=== PATIENT | female | born 1965 | race Caucasian/White ===

== ENCOUNTER 2016-10-28 18:41 | Observation (INO) | payer MEDICARE ==
[~2016-10-28] VITALS: Ht 157.5 cm; Wt 113.0 kg
[~2016-10-28 18:41] MED LIST: AMBIEN5 MG PO; APRESOLINE25 MG PO; ASPIRIN325 MG PO; BENADRYL50 MG PO; CATAPRES0.1 MG PO; CATAPRES0.2 MG PO; CLARITIN 10 MG10 MG PO; COREG12.5 MG PO; COUMADIN3 MG PO; COUMADIN5 MG PO; COUMADIN7.5 MG PO; DICLOFENAC SODI50 MG PO; EFFEXOR XR37.5 MG PO; GENTAMICIN80 MG/2 ML IV; HUMALOG 30100 UNITS/; HUMALOG 30100 UNITS/ SC; HYDRALAZINE HC100 MG PO; HYDRALAZINE HCL25 MG PO; HYDROCODONE-APA1 TAB PO; KEPPRA250 MG PO; LANTUS INSULIN10 ML SC; LANTUS SOL100 UNIT/1 SC; LASIX40 MG PO; LASIX80 MG PO; NORCO 5/325 TAB1 TA1 PO; PHENERGAN25 M1 PO; REGLAN10 MG PO; RENVELA800 MG PO; RESTORIL15 MG PO; ROXICODONE15 MG; SENSIPAR30 MG PO; TUMS500 MG PO; VANCOMYCIN IV; VANCOMYCIN1 GM/2501 IV; VITAMIN D31000 UNIT PO; XANAX0.25 MG PO; ZANAFLEX4 MG PO; ZANTAC150 MG PO; ZAROXOLYN5 MG PO; ZOFRAN8 MG PO
--- NOTE | 2016-10-28 20:53 | NUR ---
ARRIVED TO FLOOR VIA STRETCHER, ACCOMPANIED BY HOSPITAL STAFF. ORIENTED TO UNIT, CALL LIGHT IN REACH. VITAL SIGNS STABLE. SEE NURSE ASSESSMENT. WILL CONTINUE TO MONITOR.
--- NOTE | 2016-10-28 21:34 | NUR ---
MICHELLE ESPARZA APN PAGED FOR ADMISSION ORDERS, SEE NEW ORDERS. WILL CONTINUE TO MONITOR.
--- NOTE | 2016-10-28 22:14 | NUR ---
LAB AND RADIOLOGY AT BEDSIDE.
--- NOTE | 2016-10-28 22:20 | NUR ---
LAB RESULTS BACK, HEMOGLOBIN 8. WILL HOLD OFF ON BLOOD TRANSFUSION FOR NOW PER MICHELLE. WILL CHECK LAB IN AM
[2016-10-28 22:31] LABS: BASOPHILS 0.3 % (0.0-2.0); EOSINOPHILS 2.4 % (0-7); HEMATOCRIT 26.7 % (36.0-48.0); IMMATURE GRANULOCYTES 0.3 % (0-5); LYMPHOCYTES 10.9 % (15-50); MCH 27.9 pg (26.0-34.0); MEAN PLATELET VOLUME 9.6 fL (7.4-10.4); NEUTROPHILS 79.1 % (40-80); PLATELET COUNT 199 10x3/uL (130-400); RBC 2.87 10x6/uL (4.00-5.40); RDW 16.6 % (11.5-14.5)
[2016-10-28 22:45] LABS: ANION GAP 20.9 mmol/L (8-16); CALCIUM 7.4 mg/dL (8.5-10.1); CARBON DIOXIDE 23.4 mmol/L (21.0-32.0); CREATININE - SERUM 6.5 mg/dL (0.6-1.3); POTASSIUM - SERUM 4.3 mmol/L (3.5-5.1)
[2016-10-28] MEDS ORDERED: MS CONTIN15 MG PO (23:16)
[2016-10-28] MEDS ORDERED: CATAPRES0.1 MG PO (23:17)
[2016-10-28] MEDS ORDERED: AMBIEN5 MG PO (23:17)
[2016-10-28] MEDS ORDERED: ZOLOFT100 MG PO (23:18)
[2016-10-28] MEDS ORDERED: RESTORIL15 MG PO (23:19)
[2016-10-28] MEDS ORDERED: XANAX1 MG PO (23:19)
[2016-10-28] MEDS ORDERED: OMEPRAZOLE20 M1 PO (23:20)
[2016-10-28] MEDS ORDERED: COUMADIN4 MG PO (23:23)
[2016-10-28] MEDS ORDERED: SENSIPAR30 MG PO (23:24)
[2016-10-28] MEDS ORDERED: BENADRYL25 MG PO (23:26)
[2016-10-28] MEDS ORDERED: VITAMIN B COMPL1 TAB PO (23:28)
[2016-10-29 00:30] VITALS: BP 116/54
[2016-10-29 04:30] VITALS: BP 124/56
--- NOTE | 2016-10-29 04:52 | NUR ---
SHAREPOINT ANALYST AT BEDSIDE TO OBTAIN VITALS, CALL LIHGT IN REACH. WILL CONTINUE WITH PLAN CARE
[2016-10-29 05:33] LABS: BASOPHILS 0.3 % (0.0-2.0); EOSINOPHILS 3.3 % (0-7); HEMATOCRIT 24.9 % (36.0-48.0); IMMATURE GRANULOCYTES 0.3 % (0-5); LYMPHOCYTES 11.8 % (15-50); MCH 27.6 pg (26.0-34.0); MCHC 29.7 g/dL (31.0-37.0); MCV 92.9 fL (80.0-100.0); MEAN PLATELET VOLUME 10.1 fL (7.4-10.4); NEUTROPHILS 75.3 % (40-80); PLATELET COUNT 188 10x3/uL (130-400); RBC 2.68 10x6/uL (4.00-5.40); RDW 16.7 % (11.5-14.5); WBC 7.5 10x3/uL (4.8-10.8)
[2016-10-29 05:48] LABS: HEMOGLOBIN 7.4 g/dL (12-16)
[2016-10-29 05:49] LABS: ANION GAP 19.4 mmol/L (8-16); CALCIUM 7.3 mg/dL (8.5-10.1); CARBON DIOXIDE 24.8 mmol/L (21.0-32.0); CREATININE - SERUM 6.9 mg/dL (0.6-1.3); POTASSIUM - SERUM 4.2 mmol/L (3.5-5.1)
--- NOTE | 2016-10-29 06:41 | NUR ---
NO CHANGES FROM PREVIOUS ASSESSMENT. CALL LIGHT IN REACH.
[2016-10-29 07:26] LABS: INR 2.94 (0.85-1.17); PROTIME 30.9 SECONDS (11.6-15.0)
[2016-10-29 08:03] VITALS: BP 120/55
--- NOTE | 2016-10-29 09:36 | NUR ---
TELEMETRY SB WITH HR 51. CALL LIGHT IN REACH. WILL MONITOR NEEDS.
[2016-10-29 12:19] VITALS: BP 122/40
[2016-10-29 13:04] VITALS: Ht 157.5 cm; Wt 113.0 kg
--- NOTE | 2016-10-29 15:02 | NUR ---
TELEMETRY SR. UP IN CHAIR WITH CALL LIGHT IN REACH. BLOOD TO BE GIVEN ON DIALYSIS. WILL CONT. PLAN OF CARE.
[2016-10-29 16:12] VITALS: BP 135/48
--- NOTE | 2016-10-29 19:30 | NUR ---
RECIEVED PT IN BED AAOX4 RESP UNLABORED DENIES ANY NEEDS OR DISCOMFORT NAD NOTED
[2016-10-29 20:23] VITALS: BP 128/53
--- NOTE | 2016-10-29 21:00 | NUR ---
PT DIALIZING IN ROOM RECEIVING BLOOD ON DIALYSIS TOLERATING WELL NAD NOTED
--- NOTE | 2016-10-29 23:24 | NUR ---
Mrs. Nascimento had bedside hemodialysis today via her right upper arm av graft from 2015 until 2244. Average blood flow was 350 mls/minute. Transfused two units of prbc's. Removed the 700 mls from the blood products as well as a net of 2000 mls. Attempted to remove 3000 mls but pt. began having extreme cramping and requested to come off thirty minutes early. Cramping resolved about twenty minutes after coming off the machine. Post vital signs were: B/P: 99/82, HR: 75, Temp: 99.3, Resps: 18.
--- NOTE | 2016-10-29 23:58 | NUR ---
RESTING QUIETLY NAD NOTED
[2016-10-30 01:04] VITALS: BP 172/68
[2016-10-30 04:29] VITALS: BP 134/57
[2016-10-30 05:35] LABS: BASOPHILS 0.2 % (0.0-2.0); EOSINOPHILS 2.4 % (0-7); HEMATOCRIT 28.6 % (36.0-48.0); HEMOGLOBIN 8.8 g/dL (12-16); IMMATURE GRANULOCYTES 0.2 % (0-5); LYMPHOCYTES 10.1 % (15-50); MCH 28.1 pg (26.0-34.0); MCHC 30.8 g/dL (31.0-37.0); MCV 91.4 fL (80.0-100.0); NEUTROPHILS 79.1 % (40-80); PLATELET COUNT 192 10x3/uL (130-400); RBC 3.13 10x6/uL (4.00-5.40); RDW 16.4 % (11.5-14.5); WBC 8.5 10x3/uL (4.8-10.8)
[2016-10-30 06:02] LABS: ANION GAP 16.8 mmol/L (8-16); CALCIUM 7.3 mg/dL (8.5-10.1); CARBON DIOXIDE 26.2 mmol/L (21.0-32.0); CREATININE - SERUM 5.9 mg/dL (0.6-1.3); PHOSPHOROUS 5.6 mg/dL (2.5-4.9)
[2016-10-30 08:07] VITALS: BP 144/49
--- NOTE | 2016-10-30 08:50 | NUR ---
Patient Name: RICCI JACKSON Admission Status: Elective Accout number: [id number] Admission Date: 10-29-2016 : 1965 Admission Diagnosis: Attending: DORI Current LOS: 1 Anticipated DC Date: 10-30-2016 Planned Disposition: Home Primary Insurance: MEDICARE A & B Discharge Planning Comments: * Is the patient Alert and Oriented? Yes 0 * How many steps to enter\exit or inside your home? 5 0 * PCP DR. HERNÁNDEZ 0 * Pharmacy [facility] [place] 0 * Preadmission Environment Home with Family 0 * ADLs Independent 0 * Equipment None 0 * Other Equipment NO MEDICAL EQUIPMENT PROVIDER PREFERENCE 0 * List name and contact numbers for known caregivers / representatives who currently or will assist patient after discharge: KAMARI CLARKE, SIGNIFICANT OTHER, 0 * Community resources currently utilized None 0 * Please name any agencies selected above. NONE 0 * Additional services required to return to the preadmission environment? No 0 * Can the patient safely return to the preadmission environment? Yes 0 * Has this patient been hospitalized within the prior 30 days at any hospital? No 0 CM MET WITH PT IN ROOM TO DISCUSS DISCHARGE PLANNING AND NEEDS. PT REPORTS LIVING AT HOME INDEPENDENTLY WITH SIGNIFICANT OTHER. PT HAS NO MEDICAL EQUIPMENT AND NO OUTSIDE SERVICES ASSISTING IN THE HOME. CM DISCUSSED AVAILABILITY OF HOME HEALTH, REHAB SERVICES AND MEDICAL EQUIPMENT. PT DENIES DISCHARGE NEEDS, REPORTS HER SIGNIFICANT OTHER IS HERE TO PICK HER UP FOR DISCHARGE HOME TODAY. Receiving Associate: Azam Monterroso
--- NOTE | 2016-10-30 09:32 | NUR ---
IV AND TELEMETRY DCD. DC PLANS GIVEN. UNDERSTANDING VOICED. ESCORTED TO CAR BY W/C.
== END 2016-10-30 09:33 | disposition home or self-care (01) ==
LOC: D.MS 18:41 → D.M2 20:35 → OBSVTIME 20:35 → D.M2 20:35
PROVIDERS: ADMIT Internal Medicine Nephrology
DX: I13.2 Hypertensive heart and chronic kidney disease with heart failure and with stage 5 chronic kidney disease, or end stage renal disease (principal); D63.1 Anemia in chronic kidney disease; E11.22 Type 2 diabetes mellitus with diabetic chronic kidney disease; N18.6 End stage renal disease; Z99.2 Dependence on renal dialysis; Z79.4 Long term (current) use of insulin; J44.9 Chronic obstructive pulmonary disease, unspecified; N25.81 Secondary hyperparathyroidism of renal origin; E11.40 Type 2 diabetes mellitus with diabetic neuropathy, unspecified; R55 Syncope and collapse; I25.2 Old myocardial infarction

== ENCOUNTER 2016-12-11 20:50 | Inpatient (IN) | payer MEDICARE ==
[~2016-12-11] VITALS: Ht 157.5 cm; Wt 117.5 kg
[~2016-12-11 20:50] MED LIST changes: +BENADRYL25 MG PO; +COUMADIN4 MG PO; +MS CONTIN15 MG PO; +OMEPRAZOLE20 M1 PO; +VITAMIN B COMPL1 TAB PO; +XANAX1 MG PO; +ZOLOFT100 MG PO
--- NOTE | 2016-12-11 21:08 | NUR ---
RECEIVED TO ROOM 2126 VIA STRETCHER FROM [facility], ALERT AND ORIENTED 51 Y/O FEMALE UNDER DR VALIENTE'S CARE FOR DIAYLISIS WITH HIGH K+. WILL DIALYSIS TONIGHT IN ROOM. RT ARM LOOP GRAFT INTACT WITH + BRUIT AND THRILL. LEFT UPPER ARM MIDLINE CATH INTACT AND LOCKED. ASSIST INTO BED, C/L IN REACH, HOB UP SR UP X2, ORIENTATION TO UNIT, ROOM, BED, C/L, TV, PHONE, BR GIVEN WITH UNDERSTANDING VERBALIZED. CONTINUE TO MONITOR. BED ALARM IS ON AND WORKING, BILAT SCDS PLACED TO LOWER LEGS.
[2016-12-11 22:26] VITALS: BP 151/45
[2016-12-12] VITALS (7 sets, daily range): BP systolic 96–157; BP diastolic 40–71; Ht 157.5 cm; Wt 117.5 kg
--- NOTE | 2016-12-12 01:20 | NUR ---
DIALYSIS COMPLETE, 4L OBTAINED PER GINO, DIALYSIS NURSE. SHERIN WELL. HOB UP SR UP X2, C/L IN REACH. AT BEDSIDE FOR NIGHT.
[2016-12-12 05:21] LABS: BASOPHILS 0.2 % (0.0-2.0); EOSINOPHILS 1.6 % (0-7); HEMATOCRIT 26.3 % (36.0-48.0); HEMOGLOBIN 8.3 g/dL (12-16); IMMATURE GRANULOCYTES 0.2 % (0-5); LYMPHOCYTES 13.1 % (15-50); MCHC 31.6 g/dL (31.0-37.0); MCV 88.9 fL (80.0-100.0); MEAN PLATELET VOLUME 9.2 fL (7.4-10.4); MONOCYTES 15.4 % (2-11); NEUTROPHILS 69.5 % (40-80); PLATELET COUNT 154 10x3/uL (130-400); RBC 2.96 10x6/uL (4.00-5.40); RDW 15.4 % (11.5-14.5); WBC 5.7 10x3/uL (4.8-10.8)
[2016-12-12 05:47] LABS: ALBUMIN 2.5 g/dL (3.4-5.0); ANION GAP 16.6 mmol/L (8-16); BILIRUBIN - TOTAL 0.5 mg/dL (0.2-1.3); CALCIUM 7.2 mg/dL (8.5-10.1); CARBON DIOXIDE 25.2 mmol/L (21.0-32.0); CREATININE - SERUM 6.3 mg/dL (0.6-1.3); POTASSIUM - SERUM 3.8 mmol/L (3.5-5.1); PROTEIN - SERUM 7.5 g/dL (6.4-8.2)
--- NOTE | 2016-12-12 10:13 | NUR ---
0740-AM ROUNDS, PT IN THE BED AND APPEARS TO BE SLEEPING. BREATHS ARE IQRA AND NON LABORED. AT BEDSIDE. WILL CONTINUE TO MONITOR
--- NOTE | 2016-12-12 10:39 | NUR ---
[id number] DRESSING FALLING OFF. OLD DRESSING REMOVED, CLEANED THE SITE WITH CHLORAPREP, DRESSES WITH DIOPATCH AND TEGADERM. FLUSHED WITH 10CC NS. FLUSHED WELL. PT TOLERATED WELL. WILL CONTINUE TO MONITOR.
--- NOTE | 2016-12-12 19:00 | NUR ---
REPORT RECIEVED, INITIAL ASSESSMENT COMPLETE, PLEASE SEE FLOW SHEETS FOR DETAILS. PT UP IN CHAIR, COMPLAINS OF BACK PAIN BUT STATES THAT SHE SEE'S A PAIN SPECIALIST ON A REGULAR BASIS. WHEN ASKED OF SHE WAS GETTING PAIN MEDS SINCE ADMISSION SHE STATED NO. STATED SHE HAD JUST STARTED A NEW SCHEDULE OF DOSING FOR HER MORPHINE AT HOME, 30MG BID. STATED SINCE SHE STARTED THAT WAS WHEN SHE BECAME MORE WEAK. WILL INFORM MORNING NURSE ABOUT THIS. PPP. LUNG SOUNDS CLEAR BILATERALLY. BS ACTIVE X4. STRENGTH +3/4 ALL EXTREMETIES. VSS. CALL LIGHT IN REACH. WILL CONTINUE POC.
[2016-12-13 00:14] VITALS: BP 164/46
--- NOTE | 2016-12-13 01:51 | NUR ---
PT RESTING, UP IN CHAIR, DENIES PAIN/NEEDS ATT. WILL CONTINUE TO MONITOR.
[2016-12-13 04:44] VITALS: BP 160/52
[2016-12-13 05:37] LABS: BASOPHILS 0.3 % (0.0-2.0); EOSINOPHILS 1.9 % (0-7); HEMATOCRIT 28.9 % (36.0-48.0); HEMOGLOBIN 9.1 g/dL (12-16); IMMATURE GRANULOCYTES 0.1 % (0-5); LYMPHOCYTES 18.3 % (15-50); MCH 28.2 pg (26.0-34.0); MCHC 31.5 g/dL (31.0-37.0); MCV 89.5 fL (80.0-100.0); MEAN PLATELET VOLUME 9.3 fL (7.4-10.4); MONOCYTES 16.8 % (2-11); NEUTROPHILS 62.6 % (40-80); PLATELET COUNT 166 10x3/uL (130-400); RBC 3.23 10x6/uL (4.00-5.40); RDW 15.7 % (11.5-14.5)
[2016-12-13 05:38] LABS: WBC 7.3 10x3/uL (4.8-10.8)
[2016-12-13 05:40] LABS: INR 3.04 (0.85-1.17); PROTIME 31.7 SECONDS (11.6-15.0)
[2016-12-13 05:58] LABS: ANION GAP 18.8 mmol/L (8-16); CALCIUM 7.2 mg/dL (8.5-10.1)
[2016-12-13 05:59] LABS: CREATININE - SERUM 7.9 mg/dL (0.6-1.3); POTASSIUM - SERUM 4.8 mmol/L (3.5-5.1)
--- NOTE | 2016-12-13 07:46 | NUR ---
UP IN CHAIR WITH CALL LIGHT IN REACH. NO NEEDS VOICED. WILL MONITOR.
--- NOTE | 2016-12-13 07:48 | NUR ---
ASSESSMENT COMPLETED. MIDLINE IV TO LEFT WRIST SL.PT IS UP SB CONCHITA. RIGHT AVF NOTED. FOR DIALYSIS TODAY. UP IN CHAIR. NO NEEDS VOICED
[2016-12-13 08:26] VITALS: BP 176/78
--- NOTE | 2016-12-13 09:36 | NUR ---
Patient Name: RICCI JACKSON Admission Status: Elective Accout number: [id number] Admission Date: 12-11-2016 : 1965 Admission Diagnosis:WEAKNESS Attending: MELY Current LOS: 2 Anticipated DC Date: 12-13-2016 Planned Disposition: Home Primary Insurance: MEDICARE A & B Discharge Planning Comments: * Is the patient Alert and Oriented? Yes 0 * How many steps to enter\exit or inside your home? 5 0 * PCP DR. HERNÁNDEZ 0 * Pharmacy [facility] IN [place] 0 * Preadmission Environment Home with Family 0 * ADLs Independent 0 * Equipment None 0 * Other Equipment NO MEDICAL EQUIPMENT PROVIDER PREFERENCE 0 * List name and contact numbers for known caregivers / representatives who currently or will assist patient after discharge: KAMARI CLARKE, SIGNIFICANT OTHER, 0 * Community resources currently utilized None 0 * Please name any agencies selected above. NONE 0 * Additional services required to return to the preadmission environment? No 0 * Can the patient safely return to the preadmission environment? Yes 0 * Has this patient been hospitalized within the prior 30 days at any hospital? No 0 CM MET WITH PT IN ROOM TO DISCUSS DISCHARGE PLANNING AND NEEDS. PT REPORTS LIVING AT HOME INDEPENDENTLY WITH HER SIGNIFICANT OTHER. PT HAS NO MEDICAL EQUIPMENT AND NO OUTSIDE SERVICES ASSISTING IN THE HOME. CM DISCUSSED AVAILABILITY OF HOME HEALTH, REHAB SERVICES AND MEDICAL EQUIPMENT. PT DENIES DISCHARGE NEEDS, REPORTS HER SIGNIFICANT OTHER IS HERE TO PICK HER UP FOR DISCHARGE HOME TODAY. Dog Handler Or Trainer: Azam Monterroso
--- NOTE | 2016-12-13 10:32 | NUR ---
ORDER FOR DISCHARGE MEDLINE IN L AC. DRESSING REMOVED, SITE CLEAN AND DRY. CATH PULLED WITH TIP INTACT. PRESSURE APPLIED DUE TO PATIENT ON COUMADIN. NO FURTHER DISTRESS.
--- NOTE | 2016-12-13 10:32 | NUR ---
PATIENT PATHWAYS: [facility] MWF. Med recs forwarded to the home unit. BMM Dialysis Coordinator.
--- NOTE | 2016-12-13 10:50 | NUR ---
DISCHARGED HOME. INSTRUCTIONS GIVEN TO PATIENT. TO PRIVATE CAR PER WHEELCHAIR
== END 2016-12-13 10:56 | disposition home or self-care (01) | DRG 640 ==
LOC: D.M2 20:50
PROVIDERS: ADMIT Internal Medicine
PROC: 5A1D00Z (ICD-10-PCS; principal; 2016-12-13)
DX: E87.5 Hyperkalemia (principal); N18.6 End stage renal disease; E11.22 Type 2 diabetes mellitus with diabetic chronic kidney disease; Z99.2 Dependence on renal dialysis; E11.40 Type 2 diabetes mellitus with diabetic neuropathy, unspecified; I50.9 Heart failure, unspecified; D63.1 Anemia in chronic kidney disease; R41.82 Altered mental status, unspecified; T50.995A Adverse effect of other drugs, medicaments and biological substances, initial encounter

== ENCOUNTER 2017-03-31 19:50 | Inpatient (IN) | payer MEDICARE ==
[~2017-03-31] VITALS: Ht 157.5 cm; Wt 112.0 kg
[2017-03-31 21:16] LABS: BASOPHILS 0.4 % (0-2); EOSINOPHILS 4.2 % (0-7); HEMATOCRIT 24.8 % (36.0-48.0); IMMATURE GRANULOCYTES 0.4 % (0-5); LYMPHOCYTES 15.5 % (15-50); MCH 25.2 pg (26.0-34.0); MCHC 28.2 g/dL (31.0-37.0); MCV 89.2 fL (80.0-100.0); MEAN PLATELET VOLUME 9.7 fL (7.4-10.4); MONOCYTES 11.2 % (2-11); NEUTROPHILS 68.3 % (40-80); RBC 2.78 10x6/uL (4.00-5.40); RDW 18.2 % (11.5-14.5); WBC 8.3 10x3/uL (4.8-10.8)
[2017-03-31 21:29] LABS: PLATELET COUNT 242 10x3/uL (130-400)
[2017-03-31 21:44] LABS: ALBUMIN 2.1 g/dL (3.4-5.0); ALKALINE PHOSPHATASE 142 U/L (46-116); BILIRUBIN - TOTAL 0.38 mg/dL (0.2-1.3); CALCIUM 8.6 mg/dL (8.5-10.1); CARBON DIOXIDE 23.5 mmol/L (21.0-32.0); CHLORIDE - SERUM 92 mmol/L (98-107); CREATININE - SERUM 6.2 mg/dL (0.6-1.3); POTASSIUM - SERUM 3.9 mmol/L (3.5-5.1); PROTEIN - SERUM 8.1 g/dL (6.4-8.2); SODIUM 129 mmol/L (136-145); UREA NITROGEN 36 mg/dL (7-18); eGFR NON AFRICAN AMERICAN 7 mL/min (90-120)
[2017-03-31 21:45] LABS: ALT (SGPT) 3 U/L (10-68); CALC OSMOLALITY 269 mosm/kg (275-300); GLUCOSE 153 mg/dL (74-106)
[2017-03-31 21:47] LABS: CKMB 0.5 U/L (0.0-3.6); CREATINE KINASE 25 UL (21-215)
[2017-03-31 21:48] LABS: TROPONIN-I < 0.017 ng/mL (0.000-0.060)
--- NOTE | 2017-03-31 23:42 | NUR ---
REPORT RECIEVED FROM JESSICA. PT WILL BE TRANSFERED TO 2107 IN APPROX. 20 MINS
--- NOTE | 2017-04-01 00:02 | NUR ---
PT ARRIVED VIA WHEELCHAIR WITH . PT AMBULATES X1 ASSIST. VANC INFUSING AT ORDERED RATE WILL HANG ZOSYN WHEN ABLE. PT HEARTRATE IS 46 BPM ICU NURSE JESSICA STATES IT HAS BEEN 40-50 BPM SINCE ADMISSION TO ER. PT STATES SHE IS UNSURE IF THAT IS HER NORMAL HR. TELEMETRY APPLIED AND INSTALL AND REPAIR TECHNICIAN NOTIFIED OF LOW HR. PT IS ASYMPTOMATIC TO LOW HR. PT IS AAO AND SITTING IN CHAIR. PT DENIES ANY NEEDS AT THIS TIME. NO S/S OF DISTRESS, WILL CONTINUE TO MONITOR
[2017-04-01 00:19] VITALS: BP 104/39; BMI 45.4
--- NOTE | 2017-04-01 04:56 | NUR ---
PT ASLEEP IN CHAIR, ASLEEP IN BED. PT RESPIRATIONS ARE EVEN AND UNLABORED. NO S/S OF DISTRESS. WILL CONTINUE TO MONITOR
[2017-04-01 05:27] VITALS: BP 116/37
[2017-04-01 08:00] VITALS: BP 130/54
--- NOTE | 2017-04-01 10:49 | NUR ---
UP IN CHAIR WATCHING TV - BATHING SUPPLIES GIVEN - DENIES ANY OTHER NEEDS
--- NOTE | 2017-04-01 11:27 | NUR ---
TRIED TO GET URINE SAMPLE - STATED "I DON'T PEE" - TOLD HER TO CALL ME IF SHE COULD PRODUCE EVEN A LITTLE BIT OF URINE - VERBALIZED UNDERSTANDING
[2017-04-01 12:00] VITALS: BP 104/38; BP 127/40
[2017-04-01 12:12] VITALS: Ht 157.5 cm; Wt 112.0 kg
--- NOTE | 2017-04-01 13:10 | NUR ---
UP IN CHAIR WITH CALL LIGHT IN REACH. WILL MONITOR NEEDS.
--- NOTE | 2017-04-01 13:37 | NUR ---
WOUND CARE CONSULT: CULTURE FROM RIGHT ISCHIAL TUBROSCITY SENT TO LAB ORDERED. AREA SEEN IS 4.0 CM X 2 CM WITH WOUND BED PINK/RED AND WHITISH SLOUGH SEEN. CLEANED PAST CULTURE WITH WOUND GLOBAL CLIMATE CHANGE ANALYST, LIGHTLY PACKED WITH 4 X 4 AND MEDIPORE TAPE. RECOMMEND: CLEAN WITH WOUND GLOBAL CLIMATE CHANGE ANALYST, LIGHTLY PACK WITH SALINE MOSITENED REX, AND MEDIPORE TO TO SECURE. DO DAILY AND PRN PENDING CULTURE. THERE IS ALSO A SMALL 0.2 CM X 0.2 CM SCAB TO BOTTOM OF RIGHT FOOT, NO DRAINAGE.
[2017-04-01 16:00] VITALS: BP 127/40
--- NOTE | 2017-04-01 16:45 | NUR ---
OUT TO DIALYSIS
[2017-04-01 17:09] LABS: APPEARANCE HAZY (CLEAR); COLOR YELLOW (YELLOW); SPECIFIC GRAVITY 1.015 (1.005-1.020)
[2017-04-01 17:10] LABS: BILIRUBIN NEGATIVE (NEGATIVE); GLUCOSE NEGATIVE (NEGATIVE); KETONE NEGATIVE (NEGATIVE); LEUKOCYTE ESTERASE TRACE (NEGATIVE); NITRITE NEGATIVE (NEGATIVE); PROTEIN 1+ mg/dL (NEGATIVE); UROBILINOGEN NORMAL (NORMAL); WHITE CELLS - URINE >50 /hpf (0-5)
[2017-04-01 17:11] LABS: BACTERIA MANY /hpf (NONE SEEN); EPITHELIAL CELLS 25-50 /hpf (0-5); RED CELLS - URINE 0-5 /hpf (0-5); YEAST <1+ /hpf (NONE SEEN)
--- NOTE | 2017-04-01 21:18 | NUR ---
BACK FROM DIALYSIS, AWAKE, ALERT, ORIENTED, DID RECEIVE 2 UNITS PRBC'S IN DIALYSIS PER DIALYSIS NURSE BRIGETTE. PT IN NO ACUTE DISTRESS AT THIS TIME.
[2017-04-01 21:50] VITALS: BP 164/60
[2017-04-02] VITALS: BP 110/34
--- NOTE | 2017-04-02 00:50 | NUR ---
PT AWAKE, ALERT, ORIENTED, SITTING IN HER RECLINING CHAIR, DENIES ANY NEEDS. CONTINUE TO MONITOR CLOSELY.
[2017-04-02 01:18] VITALS: BP 146/44
[2017-04-02 05:35] VITALS: BP 133/31
--- NOTE | 2017-04-02 05:40 | NUR ---
IRLANDA IBANEZ NOTICED DURING 399 ROUNDS THAT PT PULLED HER IV OUT OF HER RIGHT WRIST. PT HAS DEMONSTRATED MILD CONFUSION THIS SHIFT. CONTINUE TO MONITOR CLOSELY.
[2017-04-02 06:12] LABS: ANION GAP 16.8 mmol/L (8-16); CALCIUM 8.2 mg/dL (8.5-10.1); CARBON DIOXIDE 25.2 mmol/L (21.0-32.0); CREATININE - SERUM 4.8 mg/dL (0.6-1.3)
[2017-04-02 06:45] LABS: INR 3.98 (0.85-1.17); PROTIME 39.4 SECONDS (11.6-15.0)
[2017-04-02 06:49] LABS: BASOPHILS 0.3 % (0-2); EOSINOPHILS 2.5 % (0-7); IMMATURE GRANULOCYTES 0.3 % (0-5); LYMPHOCYTES 10.4 % (15-50); MCH 26.1 pg (26.0-34.0); MCHC 30.1 g/dL (31.0-37.0); MEAN PLATELET VOLUME 9.9 fL (7.4-10.4); MONOCYTES 8.6 % (2-11); NEUTROPHILS 77.9 % (40-80); PLATELET COUNT 202 10x3/uL (130-400); WBC 7.7 10x3/uL (4.8-10.8)
[2017-04-02 06:50] LABS: HEMATOCRIT 29.9 % (36.0-48.0); MCV 86.7 fL (80.0-100.0); RBC 3.45 10x6/uL (4.00-5.40)
--- NOTE | 2017-04-02 07:05 | NUR ---
RECEIVED REPORT. ASSUMED CARE OF PATIENT. CALL LIGHT WITHIN REACH. PATIENT SITTING UP TO CHAIR AT BEDSIDE. RESP EVEN AND UNLABORED. EDEMA TO BILATERAL LOWER EXTREMITIES. DENIES NEEDS AT THIS TIME. NO DISTRESS.
[2017-04-02 08:00] VITALS: BP 123/46
[2017-04-02 10:18] LABS: HEPATITIS C ANTIBODY >11.0 (0.0-0.9)
--- NOTE | 2017-04-02 10:42 | NUR ---
DRESSING CHANGE PROVIDED TO RIGHT ISCHIUM AT THIS TIME. SLIGHT SCATTERED SLOUGH WITH LARGE AREA OF SLOUGH TO 5OCLOCK OF WOUND EDGES. TOLERATED DRESSING CHANGE WELL. NO DISTRESS.
--- NOTE | 2017-04-02 10:54 | NUR ---
SPOKE WITH NURSE PRACTITIONER ABOUT PATIENTS WOUND AND REQUESTED TO PACK WITH DAKINS MOISTENED GAUZE DAILY. TEST EXAMINER PLACED ORDER FOR THIS REPAIRER CONTROLLER TESTER.
--- NOTE | 2017-04-02 11:13 | NUR ---
FSBS 144. NO INSULIN COVERAGE REQUIRED PER SLIDING SCALE.
[2017-04-02 12:00] VITALS: BP 118/32
--- NOTE | 2017-04-02 15:27 | NUR ---
CONTINUES TO SIT IN CHAIR AT BEDSIDE. NO DISTRES. DENIES NEEDS.
[2017-04-02 15:51] VITALS: BP 115/53
--- NOTE | 2017-04-02 16:00 | NUR ---
FSBS 153. PATIENT REFUSED INSULIN COVERAGE.
--- NOTE | 2017-04-02 16:54 | NUR ---
MEDICATED FOR PAIN AT THIS TIME.
--- NOTE | 2017-04-02 17:18 | NUR ---
Patient Name: RICCI JACKSON Admission Status: ER Accout number: [id number] Admission Date: 03-31-2017 : 1965 Admission Diagnosis:CELLULITIS OF RIGHT LOWER LIMB Attending: LATONYA Current LOS: 2 Anticipated DC Date:04-04-2017 Planned Disposition: Home with Home Health Primary Insurance: MEDICARE A & B PLANNED EXTERNAL PROVIDER: [facility], [place] Discharge Planning Comments: * Is the patient Alert and Oriented? Yes 0 * How many steps to enter\exit or inside your home? 5 0 * PCP DR. HERNÁNDEZ 0 * Pharmacy [facility] IN [place] 0 * Preadmission Environment Home with Family 0 * ADLs Independent 0 * Equipment None 0 * Other Equipment NO MEDICAL EQUIPMENT PROVIDER PREFERENCE 0 * List name and contact numbers for known caregivers / representatives who currently or will assist patient after discharge: KAMARI CLARKE, SIGNIFICANT OTHER, 0 * Community resources currently utilized Other 0 * Please name any agencies selected above. [facility]F, 0900, MEDICAID TRANSPORTATION 0 * Additional services required to return to the preadmission environment? No 0 * Can the patient safely return to the preadmission environment? Yes 0 * Has this patient been hospitalized within the prior 30 days at any hospital? No 0 CM RECEIVED ORDER FOR WALKER, CANE AND SUPPLIES, MET WITH PT IN ROOM TO DISCUSS DISCHARGE PLANNING AND NEEDS. PT REPORTS LIVING AT HOME INDEPENDENTLY WITH SIGNIFICANT OTHER. PT HAS NO MEDICAL EQUIPMENT AND NO OUTSIDE SERVICES ASSISTING IN THE HOME. PT ATTENDS OUTPATIENT DIALYSIS M/W/F AT [facility] AND RIDES THE MEDICAID TRANSPORT BUS. CM DISCUSSED AVAILABILITY OF HOME HEALTH, REHAB SERVICES AND MEDICAL EQUIPMENT. PT UNDERSTANDS INSURANCE WILL NOT PAY FOR A CANE AND WILL LOOK FOR ONE PRIVATELY; PT REQUESTS WALKER FOR STABILITY AT HOME WHEN WALKING, HAS NO PREFERENCE ON PROVIDER. PT THINKS SHE MIGHT NEED HOME HEALTH, REPORTS HER SIGNIFICANT OTHER TO BE A TEACHABLE CAREGIVER, BUT THINKS THAT WOUND CARE INITIALLY MAY NEED HOME HEALTH. IF THE DOCTOR ORDERS HOME HEALTH, PT REQUESTED [facility] FROM [place], CHOICE SIGNED. PT REPORTS HER SIGNIFICANT OTHER, KAMARI, WILL PICK HER UP FOR DISCHARGE HOME. IMPORTANT MESSAGE FROM MEDICARE PROVIDED AND EXPLAINED. CM FAXED ORDER AND REFERRAL TO [facility] FOR WALKER DELIVERY TO HOSPITAL ROOM TOMORROW, 04-03-17, FAXED REFERRAL TO [phone]. CM TO FOLLOW UP WITH [facility] REGARDING HOSPITAL DELIVERY OF WALKER FOR PT'S DISCHARGE HOME. CM TO ARRANGE HOME HEALTH SERVICES WITH [facility] IF PHYSICIAN AGREES AND PROVIDES SPECIFIC WRITTEN ORDERS FOR HOME HEALTH. Folding Machine Operator: Azam Monterroso
--- NOTE | 2017-04-02 19:15 | NUR ---
RECEIVED REPORT, WILL ASSUME CARE OF PT, PT SITTING IN CHAIR, DENIES ANY NEEDS, CALL LIGHT IN REACH, WILL CONTINUE PLAN OF CARE
--- NOTE | 2017-04-03 03:43 | NUR ---
STAFF ASSISTANT AT BED SIDE TO OBTAIN VITALS, WILL CONT TO MONITOR.
[2017-04-03 04:51] VITALS: BP 144/50
--- NOTE | 2017-04-03 06:40 | NUR ---
REFUSES TO HAVE LAB DRAW, WANT IT DONE WITH DIALYSIS
--- NOTE | 2017-04-03 07:19 | NUR ---
PT UP TO BATHROOM AT THIS TIME DENIES NEEDS WILL CONT TO MONITOR
[2017-04-03 09:07] VITALS: BP 115/79
--- NOTE | 2017-04-03 10:50 | NUR ---
Patient Name: RICCI JACKSON Encounter No: [id number] : 1965 Primary Insurance: MEDICARE A & B Anticipated DC Date: 04-04-2017 Planned Disposition: Home with Home Health External Planned Provider: [facility] DCP follow-up note: CM RECEIVED CALL FROM SALINA WHO REPORTS RECEIVING REFERRAL, VERFIED PT'S ROOM NUMBER, HEIGHT AND WEIGHT. LAURA TO ARRANGE DELIVERY OF WALKER TO PT'S ROOM THIS AFTERNOON FOR DISCHARGE HOME. CM TO ARRANGE HOME HEALTH SERVICES WITH [facility] IF PHYSICIAN AGREES AND PROVIDES SPECIFIC WRITTEN ORDERS FOR HOME HEALTH. Technical Aide: Azam Monterroso
[2017-04-03 12:08] VITALS: BP 126/39
[2017-04-03 17:07] LABS: ANION GAP 13.8 mmol/L (8-16); CARBON DIOXIDE 26.9 mmol/L (21.0-32.0); CREATININE - SERUM 5.3 mg/dL (0.6-1.3); POTASSIUM - SERUM 3.7 mmol/L (3.5-5.1); VANCOMYCIN - TROUGH 20.7 ug/mL (10.0-20.0)
[2017-04-03 17:20] LABS: BASOPHILS 0.4 % (0-2); EOSINOPHILS 6.3 % (0-7); HEMATOCRIT 27.4 % (36.0-48.0); HEMOGLOBIN 8.3 g/dL (12-16); IMMATURE GRANULOCYTES 0.2 % (0-5); LYMPHOCYTES 15.7 % (15-50); MCH 25.9 pg (26.0-34.0); MCHC 30.3 g/dL (31.0-37.0); MCV 85.6 fL (80.0-100.0); MEAN PLATELET VOLUME 9.8 fL (7.4-10.4); NEUTROPHILS 72.4 % (40-80); PLATELET COUNT 188 10x3/uL (130-400); RDW 16.9 % (11.5-14.5); WBC 4.8 10x3/uL (4.8-10.8)
--- NOTE | 2017-04-03 17:55 | NUR ---
PT STILL IN DIALYSIS.
--- NOTE | 2017-04-03 19:15 | NUR ---
RECEIVED REPORT, PT IS IN DIALYSIS, BEING DISCHARGED WHEN BACK TO ROOM,
--- NOTE | 2017-04-03 20:50 | NUR ---
IV REMOVED FROM R.AC, TELEMTRY REMOVED, WENT OVER DISCHARGE INSTRUCTION, PT DISCHARGED HOME WITH , TOOK HER WALKER WITH HER
== END 2017-04-03 20:51 | disposition home health service (06) | DRG 602 ==
LOC: D.ER 19:50 → D.M2 23:38
PROVIDERS: Emergency Medicine; Family Medicine; Internal Medicine Nephrology; ADMIT Internal Medicine Nephrology
PROC: 5A1D60Z (ICD-10-PCS; principal; 2017-04-01)
DX: L03.115 Cellulitis of right lower limb (principal); N18.6 End stage renal disease; I13.2 Hypertensive heart and chronic kidney disease with heart failure and with stage 5 chronic kidney disease, or end stage renal disease; D68.9 Coagulation defect, unspecified; B95.61 Methicillin susceptible Staphylococcus aureus infection as the cause of diseases classified elsewhere; E11.22 Type 2 diabetes mellitus with diabetic chronic kidney disease; I50.9 Heart failure, unspecified; Z99.2 Dependence on renal dialysis; E11.40 Type 2 diabetes mellitus with diabetic neuropathy, unspecified; D63.1 Anemia in chronic kidney disease; F41.9 Anxiety disorder, unspecified; Z86.73 Personal history of transient ischemic attack (TIA), and cerebral infarction without residual deficits; Z87.891 Personal history of nicotine dependence

== ENCOUNTER 2017-04-25 00:25 | Inpatient (IN) | payer MEDICARE ==
[~2017-04-25] VITALS: Ht 157.5 cm; Wt 107.8 kg
--- NOTE | ~2017-04-25 | OP ---
PATIENT NAME: RICCI JACKSON MEDICAL RECORD: [id number] :[birth year] LOCATION:D.M2 D.2121 ADMISSION DATE:04/27/17 SURGEON: STEFANI BELLO MD DATE OF OPERATION: 04/29/2017 PROCEDURES: 1. PTCA stent RCA. 2. Left heart catheterization. 3. Selective coronary angiography. 4. Left ventriculogram. INDICATION: Angina and coronary artery disease. PROCEDURE IN DETAIL: After informed consent was obtained and after detailed explanation of risks, benefits as well as alternative therapies, the patient elected to proceed with angiogram and angioplasty. The right femoral area was prepped and draped in normal sterile fashion. The right femoral artery was cannulated via modified Seldinger technique with placement of 6-Swazi sheath. All catheters exchanged through this sheath. FINDINGS: Left ventriculogram was performed in standard 30-degree ROMANO view, reveals global hypokinesis, ejection fraction 40%. SELECTIVE CORONARY ANGIOGRAPHY: 1. Left main showed no significant angiographic disease. 2. Left anterior descending has previously placed stent. This is widely patent with no significant restenosis. No disease elsewise throughout the LAD or its branches. 3. Left circumflex has [id number] irregularities, but no flow-limiting stenosis. 4. Right coronary has 75% stenosis in the midvessel, otherwise only mild irregularities throughout. PTCA STENT OF THE RCA: The stent used is a 3.0 x 15 mm Integrity. Result was 0% residual stenosis. OVERALL IMPRESSION: Successful percutaneous transluminal coronary angioplasty stent of the right coronary artery going from 75% initial stenosis to 0% residual stenosis. TRANSINT:[id number] Voice Confirmation ID: [id number] DOCUMENT ID: [id number] STEFANI BELLO MD CC: [id number] DICTATION DATE: 04/29/17 1319 R&D LAB TECHNICIAN: 04/29/17 1823 ADM IN [facility] [address] [place] [address]
--- NOTE | ~2017-04-25 | HEMODYNAMI ---
PATIENT:RICCI JACKSON MEDICAL RECORD: [id number] : 65 LOCATION:[facility] D.2121 ADMISSION DATE: 04/27/17 Generatedon:04/29/201713:25 Patient name: RICCI JACKSON Patient #: [id number] SSN: : 1965 Date of study: 04/29/2017 Page: Of Hemodynamic Procedure Report Patient Data Patient Demographics Procedure consent was obtained First Name: RICCI Gender: Female Last Name: RENETTA : 1965 [facility] Initial: ROMELIA Age: 51 year(s) Patient #: [id number] Race: Additional ID: [id number] Contact details Address: [address] [place] [address] [address]ET State: [place] City: [place] Zip code: [address] Past Medical History History of disease Date Diagnosis Comments Renal failure->Dialysis Allergies Allergen Reaction Date Comments Reported Other allergy 10/27/2015 [facility] Other allergy 04/29/2017 [facility] Admission Admission Data Admission Date: 04/27/2017 Admission Time: 13:03 Room #: D.2121 Lab Results Lab Result Date: 04/29/2017 Lab Result Time: 0:00 Biochemistry Name Units Result Min Max BUN mg/dl 28 --(----)-* 7 18 Creatinine mg/dl 5.5 --(----)-* 0.6 1.3 CBC Name Units Result Min Max Hematocrit % 31.4 *-(----)-- 42 54 Hemoglobin g/dl 9.3 *-(----)-- 13.5 17.5 Coagulation Name Units Result Min Max INR units 1.54 --(----)-* 0.85 1.17 PT sec 18.4 --(----)-* 11.6 15 Procedure Procedure Types Cath Procedure Diagnostic Procedure LHC [facility] w/Coronaries PCI Procedure Coronary Stent Initial Miscellaneous Procedures Moderate Sedation up to 30 minutes Procedure Description Procedure Date Procedure Date: 04/29/2017 Procedure Start Time: 12:56 Procedure End Time: 13:19 Procedure Staff Name Function Jose Luis Avila MD Performing Physician Raul Brooke RT Scrub Priya Hinson RN Nurse Chadwick Gomez RT Monitor Evangelista Pal RN Gre Instructor Procedure Data Cath Procedure Fluoroscopy Diagnostic fluoroscopy Total fluoroscopy Time: 5.5 time: 5.5 min min Diagnostic fluoroscopy Total fluoroscopy dose: 639 dose: 639 mGy mGy Contrast Material Contrast Material Type Amount (ml) Isovue 300 48 Entry Location Entry Primary Successful Side Size Upsize Upsize Entry Closure Succes sful Closure Location (Fr) 1 (Fr) 2 (Fr) Remarks Device Remarks Femoral Right 5 Fr 5 Fr 6 Fr Exoseal artery Short Estimated blood loss: 10 ml Diagnostic catheters Device Type Used For End Catheter Placement Cordis 5Fr 3DRC Catheter Procedure (MP) Cordis 5Fr JL 4.0 Procedure Catheter (MP) Procedure Complications No complications Procedure Medications Medication Administration Route Dosage Oxygen NC 2 l/min Lidocaine 2% added to field 20 Heparin Flush Bag added to field 2 bags (1000units/500ml NS) 0.9% NaCl I.V. 100 ml/hr Versed I.V. 2 mg Fentanyl I.V. 100 mcg Fentanyl I.V. 100 mcg Versed I.V. 2 mg Versed I.V. 2 mg Fentanyl I.V. 50 mcg Heparin Bolus I.V. 4000 units Integrilin (Bolus I.V. 9.5 ml 2mg/ml) Plavix P.O. 600 mg Hemodynamics Rest HGB: 9.3 (g/dl) Heart Rate: 73 (bpm) Pressure Samples Time Site Value (mmHg) Purpose Heart Use Rate(bpm) 13:11 AO 159/24(66) Snapshot 93 Snapshots Pre Cath Intra NCS Post Cath Vital Signs Time Heart Resp SPO2 etCO2 [id number] NIBP (mmHg) Rhythm Pain Sedation Rate (ipm) (%) (mmHg) (mmHg) Status Level (bpm) 12:44:36 76 18 99 0 0 152/57(89) NSR 0 (11) 10(A) , No pain 12:49:02 75 16 100 0 0 155/67(108) NSR 0 (11) 10(A) , No pain 12:53:30 73 21 100 0 0 153/63(105) NSR 0 (11) 10(A) , No pain 12:57:56 74 30 100 0 0 140/58(97) NSR 0 (11) 10(A) , No pain 13:02:55 76 31 95 0 0 Measuring NSR 0 (11) 9(A) , No pain 13:03:05 76 34 96 0 0 123/58(83) NSR 0 (11) 9(A) , No pain 13:07:26 76 19 97 0 0 125/51(83) NSR 0 (11) 9(A) , No pain 13:11:44 77 23 97 0 0 109/47(84) NSR 0 (11) 9(A) , No pain 13:16:00 78 20 98 0 0 121/47(104) NSR 0 (11) 10(A) , No pain Medications Time Medication Route Dose Verified Delivered Reason Notes Ef fectiveness by by 12:44:52 Oxygen NC 2 Priya Priya used for l/min Sravan Sravan light bulb replacer RN 12:45:01 Lidocaine 2% added 20ml Priya Priya used for to vial Sravan Sravan procedure field RN RN 12:45:14 Heparin Flush added 2 Priya Priya used for Bag to bags Sravan Sravan procedure (1000units/500ml field RN RN NS) 12:45:30 0.9% NaCl I.V. 100 Priya Priya used for ml/hr Sravan Sravan light bulb replacer RN 12:56:40 Versed I.V. 2 mg Priya Priya for Sravan Sravan sedation RN RN 12:57:29 Fentanyl I.V. 100 Priya Priya for mcg Sravan Sravan sedation RN RN 13:02:49 Fentanyl I.V. 100 Priya Priya for mcg Sravan Sravan sedation RN RN 13:03:11 Versed I.V. 2 mg Priya Priya for Sravan Sravan sedation RN RN 13:08:25 Versed I.V. 2 mg Priya Priya for Sravan Sravan sedation RN RN 13:08:42 Heparin Bolus I.V. 4000 Jose Luis Priya Per verified units Austin TREVINO Sravan physician with dr. JOEY avila 13:09:07 Integrilin I.V. 9.5ml Jose Luis Priya Per 0.5ml (Bolus 2mg/ml) Austin Hinson physician wasted RN 13:09:33 Fentanyl I.V. 50 Priya Powers for mcg Sravan Hinson sedation RN RN 13:18:44 Plavix P.O. 600 Jose Luis Powers Per mg Austin Hinson physician ground transportation operator Log Time Note 12:28:54 Informed consent obtained and on chart 12:30:16 Evangelista Pal RN sent for patient. Start room use. 12:30:17 Time tracking: Regular hours 12:30:21 Plan of Care:Hemodynamics will remain stable., Cardiac rhythm will remain stable., Comfort level will be maintained., Respiratory function will remain adequate., Patient/ family verbilizes understanding of procedure., Procedure tolerated without complication., Recovers from procedure without complications.. 12:35:33 Patient received from Med II to CCL 1 Alert and oriented. Tansferred to table in Supine position. 12:35:35 Warm blankets applied, and moses hugger turned on for patient comfort. 12:35:35 Correct patient and procedure confirmed by team. 12:35:36 ECG and BP/O2 sat monitors applied to patient. 12:35:42 Pre-procedure instructions explained to patient. 12:35:43 Pre-op teaching completed and patient verbalized understanding. 12:35:47 Family in patients room. 12:35:49 Patient NPO since Midnight. 12:43:07 Vital chart was started 12:44:52 Oxygen 2 l/min NC was administered by Priya Hinson RN; used for procedure; 12:45:01 Lidocaine 2% 20ml vial added to field was administered by Priya Hinson RN; used for procedure; 12:45:14 Heparin Flush Bag (1000units/500ml NS) 2 bags added to field was administered by Priya Hinson RN; used for procedure; 12:45:30 0.9% NaCl 100 ml/hr I.V. was administered by Priya Hinson RN; used for procedure; 12:50:47 Baseline sample Acquired. 12:50:57 Rhythm: sinus rhythm 12:51:14 Patient allergic to Other allergyZyrtec 12:51:17 Is the patient allergic to Iodine/contrast media? No. 12:51:28 Patient diabetic? Yes. 12:51:30 If diabetic: On Metformin? No 12:51:40 Previous problem with sedation/anesthesia? No ? 12:51:40 Snore? Yes 12:51:42 Sleep apnea? No 12:51:44 Deviated septum? No 12:51:45 Opens mouth fully? Yes 12:51:46 Sticks out tongue? Yes 12:51:47 Airway obstruction? No ? 12:51:50 Dentures? Yes Out 12:51:54 Patient pain scale 0/10 ?. 12:52:08 IV patent on arrival in left antecubital with 0.9% NaCl at [facility]. 12:52:11 Pre procedure: right dorsailis pedis pulse 1+ Palpable, but thready & weak; easily obliterated 12:55:41 Lab results completed and on chart. 12:55:43 Right groin area was prepped with chlora-prep and draped in sterile fashion 12:55:44 Alarms reviewed by R. N. 12:55:44 Sharps counted by scrub and verified by R.N. 12:55:47 Use device set Femoral Dx 12:55:48 Tegaderm 4 x 4 opened to sterile field. 12:55:49 Acist Manifold opened to sterile field. 12:55:50 Acist Hand Control opened to sterile field. 12:55:51 Acist Syringe opened to sterile field. 12:55:51 Bag Decanter opened to sterile field. 12:55:52 Medline Cath Pack opened to sterile field. 12:55:52 Terumo 5Fr [place] Sheath opened to sterile field. 12:55:53 St Davian 260cm J .035 wire opened to sterile field. 12:55:54 Diagnostic Infinity 5Fr Multipack catheter opened to sterile field. 12:56:03 Physician arrived 12:56:03 --------ALL STOP TIME OUT------ 12:56:03 Final Timeout: patient, procedure, and site verified with staff and physician. All members of the team are in agreement. 12:56:05 Right groin site verified by team. 12:56:07 Physical assessment completed. ASA score P 2 - A patient with mild systemic disease as per Jose Luis Avila MD. 12:56:10 Sedation plan: IV Moderate Sedation Versed, Fentanyl 12:56:21 Procedure started. 12:56:21 Full Disclosure recording started 12:56:28 Local anesthetic to right femoral artery with Lidocaine 2% by Jose Luis Avila MD.INITIAL ACCESS ONLY 12:56:40 Versed 2 mg I.V. was administered by Priya Hinson RN; for sedation; 12:57:29 Fentanyl 100 mcg I.V. was administered by Priya Hinson RN; for sedation; 12:59:47 Lab Result : Hemoglobin 9.3 g/dl 12:59:47 Lab Result : Creatinine 5.5 mg/dl 12:59:47 Lab Result : BUN 28 mg/dl 12:59:47 Lab Result : INR 1.54 units 12:59:47 Lab Result : PT 18.4 sec 12:59:47 Lab Result : Hematocrit 31.4 % 13:01:35 Terumo 5Fr [place] Sheath opened to sterile field. 13:01:55 [place] eCareDiary AMPLATZ Super stiff 260cm guide wire opened to sterile field. 13:02:08 A 5 Fr sheath was inserted into the Right Femoral artery 13:02:49 Fentanyl 100 mcg I.V. was administered by Priya Hinson RN; for sedation; 13:02:58 Zero performed for pressure channel P1 13:03:04 Zero performed for pressure channel P1 13:03:07 Zero performed for pressure channel P1 13:03:09 Zero performed for pressure channel P1 13:03:11 Versed 2 mg I.V. was administered by Priya Hinson RN; for sedation; 13:03:11 Zero performed for pressure channel P1 13:03:43 St Davian 260cm J .035 wire opened to sterile field. 13:03:48 Terumo TORQUE DEVICE PLASTIC .038 opened to sterile field. 13:05:20 Terumo 5Fr [place] Sheath opened to sterile field. 13:05:27 Sheath upsized to a 5 Fr. 13:05:57 Merit 18G 9cm Percutaneous Entry needle opened to sterile field. 13:06:33 A CordBizerra.ru 5Fr 3DRC Catheter (MP) was advanced over the wire and used for Procedure. 13:06:46 RCA angiography performed. 13:07:10 Lee Whisper J 300cm 0.014 guide wire opened to sterile field. 13:07:10 Terumo 6Fr [place] Sheath opened to sterile field. 13:07:11 Cecy BasixCompak Inflation Kit opened to sterile field. 13:07:22 Catheter exchanged over wire. 13:07:25 A Cordis 5Fr JL 4.0 Catheter () was advanced over the wire and used for Procedure. 13:08:09 LCA angiography performed. 13:08:25 Versed 2 mg I.V. was administered by Priya Hinson RN; for sedation; 13:08:35 Catheter removed. 13:08:42 Heparin Bolus 4000 units I.V. was administered by Priya Hinson RN; Per physician; verified with dr. avila 13:08:43 Sheath upsized to a 6 Fr Short. 13:09:07 Integrilin (Bolus 2mg/ml) 9.5ml I.V. was administered by Priya Hinson RN; Per physician; 0.5ml wasted 13:09:29 Medtronic Launcher 6Fr HS I guide catheter opened to sterile field. 13:09:33 Fentanyl 50 mcg I.V. was administered by Priya Hinson RN; for sedation; 13:10:56 6 Fr AR 1 guide catheter was inserted over the wire 13:10:59 WHISPER wire advanced. 13:11:33 LV gram done using ROMANO 13:11:37 EF : 40 % 13:13:09 Wire advanced across lesion. 13:13:12 Inflation Number: 1 A Medtronic Integrity 3.0 X 15 stent was prepped and advanced across the Prox RCA. The stent was deployed at 11 BERTIN for 0:10 (min:sec). 13:13:29 Stent catheter was removed intact over wire. 13:13:30 Wire removed. 13:13:30 Guide catheter removed. 13:13:37 Cordis 6Fr Exoseal opened to sterile field. 13:13:48 Sheath removed intact; hemostasis achieved with Exoseal to the Right Femoral artery. 13:13:51 Procedure ended.(Physican Out) 13:15:51 Fluoroscopy time 05.50 minutes. 13:15:57 Fluoroscopy dose: 639 mGy 13:15:57 Flurop Dose total: 639 13:16:01 Contrast amount:Isovue 300 48ml. 13:16:05 Sharps counted by scrub and verified by R.N. 13:16:10 Insertion/operative site no bleeding no hematoma. 13:16:13 Post-op/insertion site Right Femoral artery dressed using a 4 x 4 and Tegaderm. 13:16:17 Post right femoral artery:stable, soft, clean and dry 13:16:18 Post Procedure Pulses reassessed and unchanged 13:16:23 Post-procedure physical assessment completed. ASA score P 2 - A patient with mild systemic disease as per Jose Luis Avila MD. 13:16:26 Post procedure rhythm: unchanged. 13:16:29 Estimated blood loss: 10 ml 13:16:33 Post procedure instruction explained to patient.Patient verbalizes understanding. 13:16:33 Patient needs reinforcement of post procedure teaching. 13:16:43 Procedure type changed to Cath procedure, Diagnostic procedure, LHC, LHC w/Coronaries, PCI procedure, Coronary Stent Initial, Miscellaneous Procedures, Moderate Sedation up to 30 minutes 13:18:42 Procedure and supply charges have been captured, reviewed, submitted and are correct. 13:18:44 Plavix 600 mg P.O. was administered by Priya Hinson RN; Per physician; 13:18:47 Procedure Complication : No complications 13:19:05 Vital chart was stopped 13:19:05 See physician's report for complete and final results. 13:19:07 Report given to PCU. 13:19:09 Patient transfered to PCU with Stretcher. 13:19:11 Procedure ended. 13:19:11 Full Disclosure recording stopped 13:19:18 End room use (Document Last) Intervention Summary Intervention Notes Time ActionType Lesion and Equipment Action# Pressure Duration Attributes Used 13:13:12 Place stent Prox RCA Medtronic 1 11 00:10 Integrity 3.0 X 15 stent Device Usage Item Name Manufacture Quantity Catalog Hospital Part Current Minimal Lot# / Number Charge Number Stock Stock Serial# Code Tegaderm 4 x 3M 1 [id number] 698636 924872 5 4 Acist Acist 1 77902 878948 244195 787690 5 Manifold Medical Systems Inc Acist Hand Acist 1 38254 098071 038314 552302 5 Control Medical Systems Inc Acist Acist 1 64775 103744 084139 374076 20 Syringe Medical Systems Inc Bag Decanter Microtek 1 2002S 2964981 12747 544397 5 Medical Inc. Medline Cath Cardinal 1 [id number] 819953 82346 147020 5 Pack Health Terumo 5Fr Terumo 3 [id number] 101236 376953 625867 [address] St Davian 2 400033 120922 528375 154250 30 260cm J .035 wire Diagnostic Cardinal 1 [id number] 871391 74030 682644 30 Infinity 5Fr Health Multipack catheter [place] Sci [place] 1 [id number] 650944 62396 714173 5 AMPLATZ Scientific Super stiff 260cm guide wire Terumo [place] 1 TD01 096008 262112 437166 5 TORQUE Scientific DEVICE PLASTIC .038 Merit 18G Merit 1 [id number] 749087 926856 159582 5 9cm Medical Percutaneous Entry needle Cordis 5Fr Cardinal 1 908160 5 3DRC Health Catheter (MP) Lee Lee 1 [id number] 366102 630777 235228 5 Whisper J Vascular 300cm 0.014 guide wire Terumo 6Fr Terumo 1 [id number] 267371 750484 568933 40 [place] Sheath Merit Merit 1 [id number] 547107 688719 939584 15 BasixCompak Medical Inflation Kit Cordis 5Fr Cardinal 1 613998 5 JL 4.0 Health Catheter (MP) Medtronic Medtronic 1 [id number] 422544 67749 721155 1 Launcher 6Fr HS I guide catheter Medtronic Medtronic 1 [id number] 894632 778283 8 [id number] Integrity 3.0 X 15 stent Cordis 6Fr Cardinal 1 EX600 479906 283707 082840 10 [facility] [place] Signature Audit [place] Stage Time Signature Unsigned Intra-Procedure 04/29/2017 Chadwick Gomez 1:25:27 PM RT(R) Signatures Monitor : Chadwick Gomez RT Signature : Date : Time : [place] [address] [place] [address]
[2017-04-26] VITALS (7 sets, daily range): BP systolic 140–203; BP diastolic 34–89; Ht 157.5 cm; Wt 107.8 kg
--- NOTE | 2017-04-26 01:04 | NUR ---
ARRIVED TO FLOOR VIA STRETCHER ACCOMPANIED BY NOÉ MARINE DESIGNER. ORIENTED TO UNIT, PLACED ON TELEMETRY 60 SR WITH BBB. COMPLAINTS OF PAIN AND NAUSEA. BP ELEVATED 193/76. DR. BELLO PAGED FOR NEW ORDERS. AWAITING CALL BACK. WILL CONTINUE TO MONITOR. SEE NURSE ASSESSMENT.
--- NOTE | 2017-04-26 01:28 | NUR ---
ATTEMPTED TO PAGE DR. BELLO AGAIN, AWAITING CALL BACK
[2017-04-26] MEDS ORDERED: KEFLEX250 MG PO (01:36)
--- NOTE | 2017-04-26 07:38 | NUR ---
ASSESSMENT DONE. DENIES NEEDS.
[2017-04-26 08:29] LABS: BASOPHILS 0.1 % (0-2); EOSINOPHILS 0.1 % (0-7); HEMATOCRIT 31.4 % (36.0-48.0); HEMOGLOBIN 9.3 g/dL (12-16); IMMATURE GRANULOCYTES 0.3 % (0-5); LYMPHOCYTES 8.1 % (15-50); MCH 25.2 pg (26.0-34.0); MCHC 29.6 g/dL (31.0-37.0); MCV 85.1 fL (80.0-100.0); MEAN PLATELET VOLUME 9.5 fL (7.4-10.4); MONOCYTES 3.5 % (2-11); NEUTROPHILS 87.9 % (40-80); RBC 3.69 10x6/uL (4.00-5.40); RDW 17.1 % (11.5-14.5)
[2017-04-26 08:46] LABS: PLATELET COUNT 237 10x3/uL (130-400)
[2017-04-26 08:48] LABS: ANION GAP 18.9 mmol/L (8-16); CALCIUM 9.2 mg/dL (8.5-10.1); CARBON DIOXIDE 24.5 mmol/L (21.0-32.0); CREATININE - SERUM 6.1 mg/dL (0.6-1.3); POTASSIUM - SERUM 4.4 mmol/L (3.5-5.1)
--- NOTE | 2017-04-26 09:23 | NUR ---
RESP UL ON . UP IN CHAIR WITH CALL LIGHT IN REACH. WILL CONT. PLAN OF CARE.
--- NOTE | 2017-04-26 18:02 | NUR ---
WITHOUT CHANGES OR DISTRESS NOTED AT THIS TIME. DENIES NEEDS. UNABLE TO DO CATH DUE TO PT BEING ON WARFRAN AND NOT REPORTING IT A HOME MED.
[2017-04-26 22:45] LABS: INR 1.95 (0.85-1.17); PROTIME 22.2 SECONDS (11.6-15.0)
[2017-04-27] VITALS: BP 149/52
[2017-04-27 04:00] VITALS: BP 168/62
--- NOTE | 2017-04-27 07:15 | NUR ---
ASSESSMENT COMPLETED. TELEMERTY SHOWS SR. O2 AT 2 L/M PER NC.RIGHT ARM LOOP FOR DIALYSIS. REDDNESS TO RIGHT BUTTOCK AND LEFT ABD FOLD. DRSGING INTACT. ENIES ANY NEEDS. WILL MONITOR
--- NOTE | 2017-04-27 08:00 | NUR ---
RESTING QUIETLY RESP UNLABORED NAD NOTED
[2017-04-27 10:02] VITALS: BP 159/64
--- NOTE | 2017-04-27 10:10 | NUR ---
TO DIALYSIS PER [facility]
[2017-04-27 11:20] LABS: ALBUMIN 2.1 g/dL (3.4-5.0); ANION GAP 13.9 mmol/L (8-16); BILIRUBIN - DIRECT 0.18 mg/dL (0.00-0.30); BILIRUBIN - INDIRECT 0.22 mg/dL (0.00-1.00); BILIRUBIN - TOTAL 0.4 mg/dL (0.2-1.3); CALCIUM 7.9 mg/dL (8.5-10.1); CARBON DIOXIDE 26.8 mmol/L (21.0-32.0); CREATININE - SERUM 6.7 mg/dL (0.6-1.3); POTASSIUM - SERUM 3.7 mmol/L (3.5-5.1); PROTEIN - SERUM 8.1 g/dL (6.4-8.2)
--- NOTE | 2017-04-27 18:27 | NUR ---
LYING QUIETLY. NO NEEDS VOICED. SR UP ITH CALL LIGHT IN REACH
[2017-04-27 20:00] VITALS: BP 195/71
[2017-04-28] VITALS: BP 183/67
[2017-04-28 04:00] VITALS: BP 134/77
[2017-04-28 05:29] LABS: PROTIME 18.4 SECONDS (11.6-15.0)
[2017-04-28 05:37] LABS: INR 1.54 (0.85-1.17)
[2017-04-28 05:50] LABS: ALBUMIN 2.2 g/dL (3.4-5.0); ANION GAP 12.9 mmol/L (8-16); BILIRUBIN - TOTAL 0.58 mg/dL (0.2-1.3); CALCIUM 8.6 mg/dL (8.5-10.1); CARBON DIOXIDE 27.8 mmol/L (21.0-32.0); CREATININE - SERUM 5.5 mg/dL (0.6-1.3); POTASSIUM - SERUM 3.7 mmol/L (3.5-5.1); PROTEIN - SERUM 8.3 g/dL (6.4-8.2)
[2017-04-28 05:51] LABS: TROPONIN-I 0.061 ng/mL (0.000-0.060)
--- NOTE | 2017-04-28 07:25 | NUR ---
RESTING QUIETLY NAD NOTED
--- NOTE | 2017-04-28 07:38 | NUR ---
ASSESSMENT COMPLETED. TELEMERTY SHOWS SR. IV TO LEFT AC, SL PATENT. LEFT ABD WITH BREAKDOWN WELL BUTTOCK AND HIP. DRSG INTACK AND DRY. DENIES ANY NEEDS AT PRESENT TIME. UP IN BEDSIDE CHAIR WITH CALL LIGHT IN REACH
[2017-04-28 08:11] VITALS: BP 196/70
[2017-04-28 12:19] VITALS: BP 198/68
[2017-04-28 16:27] VITALS: BP 188/72
--- NOTE | 2017-04-28 20:00 | NUR ---
PT ALERT/ORIENTED AND SITTING UP IN BED. SR PER TELEMETRY. SALINE LOCK TO LEFT A/C. RESERVE RIGHT ARM FOR AV GRAFT. SEE SHIFT ASSESSMENT. CPOC.
[2017-04-28 20:56] VITALS: BP 180/66
[2017-04-29 00:20] VITALS: BP 199/80
[2017-04-29 06:13] VITALS: BP 164/52
--- NOTE | 2017-04-29 08:09 | NUR ---
ASSESSMENT DONE. DENIES NEEDS.
[2017-04-29 09:12] VITALS: BP 173/69
--- NOTE | 2017-04-29 09:54 | NUR ---
UP IN CHAIR WITH CALL LIGHT IN REACH. WILL MONITOR NEEDS.
[2017-04-29 12:00] VITALS: BP 188/77
--- NOTE | 2017-04-29 12:35 | NUR ---
TO CHIEF OF HARBOR PATROL PER BED
--- NOTE | 2017-04-29 13:40 | NUR ---
RETURN FROM BRIQUETTE MOLDER PER BED. RT DOROTHY SWANSON C/D
--- NOTE | 2017-04-29 14:51 | NUR ---
TO HD PER BED.
[2017-04-29 16:00] VITALS: BP 135/58
--- NOTE | 2017-04-29 20:31 | NUR ---
PT IV REMOVED, DISCHARGED INSTRUCTION GIVEN, SCRIPT FOR PLAVIX GIVEN, TAKEN DOWNSTAIR VIA WHEELCHAIR
== END 2017-04-29 20:35 | disposition home or self-care (01) | DRG 248 ==
LOC: D.MS 00:25 → D.M2 04-26 00:36 → OBSVTIME 04-26 00:37 → D.SDCHOLD 04-26 22:14 → D.M2 04-26 22:16
PROVIDERS: Internal Medicine Cardiovascular Disease; Internal Medicine Nephrology; ADMIT Internal Medicine Interventional Cardiology
PROC: 5A1D60Z (ICD-10-PCS; principal; 2017-04-26)
PROC: 4A023N7 Measurement of Cardiac Sampling and Pressure, Left Heart, Percutaneous Approach (ICD-10-PCS; 2017-04-29)
PROC: B2111ZZ Fluoroscopy of Multiple Coronary Arteries using Low Osmolar Contrast (ICD-10-PCS; 2017-04-29)
PROC: B2151ZZ Fluoroscopy of Left Heart using Low Osmolar Contrast (ICD-10-PCS; 2017-04-29)
PROC: 02703DZ Dilation of Coronary Artery, One Artery with Intraluminal Device, Percutaneous Approach (ICD-10-PCS; 2017-04-29 12:00)
DX: I21.4 Non-ST elevation (NSTEMI) myocardial infarction (principal); N18.6 End stage renal disease; I13.2 Hypertensive heart and chronic kidney disease with heart failure and with stage 5 chronic kidney disease, or end stage renal disease; D68.9 Coagulation defect, unspecified; I25.119 Atherosclerotic heart disease of native coronary artery with unspecified angina pectoris; E11.22 Type 2 diabetes mellitus with diabetic chronic kidney disease; E11.40 Type 2 diabetes mellitus with diabetic neuropathy, unspecified; I50.9 Heart failure, unspecified; D63.1 Anemia in chronic kidney disease; E87.5 Hyperkalemia; M79.3 Panniculitis, unspecified; Z86.73 Personal history of transient ischemic attack (TIA), and cerebral infarction without residual deficits; Z87.891 Personal history of nicotine dependence